=== PATIENT | female | born 1985 | race African-American/Black ===

== ENCOUNTER 2018-06-16 03:56 | Emergency (ER) | payer OTHER ==
[~2018-06-16] VITALS: Ht 165.1 cm; Wt 86.0 kg
[2018-06-16 07:45] VITALS: BP 121/65
== END 2018-06-16 07:55 | disposition home or self-care (01) ==
LOC: ER 03:56
DX: O9A.211 Injury, poisoning and certain other consequences of external causes complicating pregnancy, first trimester (principal); S50.812A Abrasion of left forearm, initial encounter; M54.5 Low back pain; Z3A.01 Less than 8 weeks gestation of pregnancy; V49.09XA Driver injured in collision with other motor vehicles in nontraffic accident, initial encounter; Y93.89 Activity, other specified; Y92.89 Other specified places as the place of occurrence of the external cause; Y99.8 Other external cause status
CPT/HCPCS: 76801; 99284